=== PATIENT | female | born 1955 | race Caucasian/White ===

== ENCOUNTER 2017-02-12 21:07 | Emergency (ER) | payer BC ==
[2017-02-12 21:43] LABS: BASO # 0.1 x10^3/uL (0.0-0.2); BASO % 1 % (0-3); BILIRUBIN,URINE NEGATIVE (NEG); CLARITY,URINE CLOUDY; COLOR,URINE YELLOW; EOS % 0 % (0-3); GLUCOSE,URINE NEGATIVE (NEG); HEMATOCRIT 39.4 % (36.0-47.0); HEMOGLOBIN 13.1 g/dL (12.0-15.5); LYMPH # 1.1 x10^3/uL (1.0-4.8); LYMPH % 6 % (24-48); MEAN CORPUSCULAR HEMOGLOBIN 30 pg (25-35); MEAN CORPUSCULAR HGB CONC 33 g/dL (31-37); MEAN CORPUSCULAR VOLUME 89 fL (79-100); MONO # 1.1 x10^3/uL (0.0-1.1); MONO % 7 % (0-9); NEUT # 14.3 x10^3uL (1.8-7.7); NEUT % 86 % (31-73); NITRITE,URINE NEGATIVE (NEG); PLATELET COUNT 370 x10^3/uL (140-400); PROTEIN,URINE 30 mg/dL (NEG-TRACE); RED BLOOD COUNT 4.45 x10^6/uL (3.50-5.40); RED CELL DISTRIBUTION WIDTH 12.7 % (11.5-14.5); UROBILINOGEN,URINE 0.2 mg/dL (0.2 mg/dL); WHITE BLOOD COUNT 16.6 x10^3/uL (4.0-11.0)
[2017-02-12 21:45] LABS: ADD MAN DIFF? YES
[2017-02-12 21:47] LABS: BACTERIA,URINE FEW /HPF (0-FEW); SQUAMOUS EPITHELIAL CELL,UR FEW /LPF
[2017-02-12] MEDS: IV NORMAL SALINE 500ML BAG 500 ML IV (21:49)
[2017-02-12] MEDS: ONDANSETRON PF 4 MG/2 ML VIAL. IV (21:49)
[2017-02-12] MEDS: MORPHINE SULFATE 4 MG/ML DISP.SYRIN. IV (21:50)
[2017-02-12 22:08] LABS: % BANDS 9 % (0-9); % LYMPHS 4 % (24-48); % MONOS 7 % (0-10); % SEGS 80 % (35-66); PLT ESTIMATE ADEQUATE (ADEQUATE)
[2017-02-12 22:11] LABS: ANION GAP 15 (6-14); BLOOD UREA NITROGEN 12 mg/dL (7-20); BUN/CREATININE RATIO 10 (6-20); CALCIUM 9.2 mg/dL (8.5-10.1); CARBON DIOXIDE 24 mmol/L (21-32); CHLORIDE 99 mmol/L (98-107); CREATININE 1.2 mg/dL (0.6-1.0); GFR 45.4; GLUCOSE 143 mg/dL (70-99); POTASSIUM 3.1 mmol/L (3.5-5.1); SODIUM 138 mmol/L (136-145)
[2017-02-12 22:18] LABS: ALK PHOS 99 U/L (46-116); ALT (SGPT) 23 U/L (14-59); AST (SGOT) 29 U/L (15-37); TOTAL BILIRUBIN 0.7 mg/dL (0.2-1.0)
[2017-02-12] MEDS: KETOROLAC 15 MG/ML VIAL. IV (22:52)
== END 2017-02-12 23:20 | disposition home or self-care (01) ==
LOC: ER 21:07
DX: N20.0 Calculus of kidney (principal)
CPT/HCPCS: 36415; 74176; 80053; 81001; 85007; 85025; 87086; 96361; 96374; 96375; 99285-25; J1885; J2270; J2405; J7040